=== PATIENT | female | born 1980 | race Caucasian/White ===

== ENCOUNTER 2020-01-27 09:06 | Day surgery (SDC) | payer OTHER, SELFPAY ==
[~2020-01-27] VITALS: Ht 152.4 cm; Wt 77.1 kg
[2020-01-27] MEDS ORDERED: MIDAZOLAM 2 MG/2 ML VIAL ONE (10:49)
[2020-01-27] MEDS ORDERED: fentaNYL citrate 0.05 MG/ML VIAL ONE (10:49)
[2020-01-27] MEDS ORDERED: fentaNYL citrate 0.05 MG/ML VIAL IVP ONE (13:00)
[2020-01-27] MEDS ORDERED: MIDAZOLAM 2 MG/2 ML VIAL IVP ONE (13:00)
== END 2020-01-27 12:15 | disposition home or self-care (01) ==
LOC: MDS 09:06 → MFCC 09:07 → MDS 12:15
PROVIDERS: ATTEND Internal Medicine Gastroenterology
DX: R10.13 Epigastric pain (principal); K31.89 Other diseases of stomach and duodenum; K44.9 Diaphragmatic hernia without obstruction or gangrene; Z11.59 Encounter for screening for other viral diseases; Z90.49 Acquired absence of other specified parts of digestive tract; Z79.899 Other long term (current) drug therapy; E66.9 Obesity, unspecified; Z68.32 Body mass index [BMI] 32.0-32.9, adult; Z98.84 Bariatric surgery status; Z98.890 Other specified postprocedural states
CPT/HCPCS: 36415; 43239; 81025; 86677; J2250; J3010; J7030; U0003